=== PATIENT | female | born 1970 | race Caucasian/White ===

== ENCOUNTER 2021-11-23 04:37 | Day surgery (SDC) | payer OTHER ==
[2021-11-19 16:56] VITALS: BMI 30.9
[2021-11-23 09:07] VITALS: TEMP 98
[2021-11-23 09:51] VITALS: BP 110/63; PULSE 69
== END 2021-11-23 10:13 | disposition home or self-care (01) ==
LOC: JASU-ENDO 04:37
PROVIDERS: ATTEND Internal Medicine Gastroenterology
PROC: 0DJD8ZZ Inspection of Lower Intestinal Tract, Via Natural or Artificial Opening Endoscopic (ICD-10-PCS; principal; 2021-11-23 08:45)
DX: Z12.11 Encounter for screening for malignant neoplasm of colon (principal); K64.8 Other hemorrhoids; K59.89 Other specified functional intestinal disorders; Z80.0 Family history of malignant neoplasm of digestive organs
CPT/HCPCS: 81025